=== PATIENT | male | born 1955 | race Caucasian/White ===

== ENCOUNTER 2016-07-15 20:49 | Emergency (ER) | payer MEDICARE, MEDICAID ==
[2016-07-15] MEDS ORDERED: DIPH/PERTUSS(ACELL)/TETANUS VAC/PF 0.5 ML SYR (>=10YO) IM ONE (22:01)
--- NOTE | 2016-07-15 22:04 | ER Document Report ---
ED General - General Chief Complaint: Laceration Stated Complaint: LACERATION TO LEFT INDEX FINGER Time Seen by Provider: 07/15/16 22:01 Notes: Patient is a 60-year-old male who presents after sustaining superficial lacerations over the dorsal surface of his bilateral index fingers. States he was using a saw when he lost control of it and struck both fingers. Notes a dull, constant throbbing pain to the affected areas. States only recently came to the emergency department as he was unable to achieve hemostasis from the left index finger laceration but has now since resolved after application of direct pressure. Nothing was noted to worsen his symptoms. Has not seen his primary care doctor regarding today's concerns. He denies any limited range of motion in the affected digits. His tetanus shot is not up-to-date. Denies any additional injuries. TRAVEL OUTSIDE OF THE [place] IN LAST 30 DAYS: No - Related Data Allergies/Adverse Reactions: No Known Allergies Allergy (Verified 07/15/16 21:30) Past Medical History - General Information source: Patient - Social History Smoking Status: Former Smoker Chew tobacco use (# tins/day): No Frequency of alcohol use: None Drug Abuse: None Lives with: Spouse/Significant other Family History: Reviewed & Not Pertinent Patient has suicidal ideation: No Patient has homicidal ideation: No - Past Medical History Cardiac Medical History: Reports: Hx Hypertension Renal/ Medical History: Denies: Hx Peritoneal Dialysis Musculoskeltal Medical History: Reports Hx Musculoskeletal Deformity, Reports Hx Musculoskeletal Trauma Surgical Hx: Negative - Immunizations Hx Diphtheria, Pertussis, Tetanus Vaccination: No Review of Systems - Review of Systems Notes: Constitutional: Negative for fever. Eyes: Negative for visual changes. ENT: Negative for facial injury Cardiovascular: Negative for chest injury. Respiratory: Negative for shortness of breath. Gastrointestinal: Negative for abdominal injury. Genitourinary: Negative for genital injury Musculoskeletal: Negative for back injury. Skin: Positive for laceration/abrasions. Neurological: Negative for head injury. Physical Exam - Vital signs Vitals: Pulse Resp BP Pulse Ox 57 L 20 148/73 H 97 07/15/16 22:48 07/15/16 22:48 07/15/16 22:48 07/15/16 22:48 Interpretation: Hypertensive, Bradycardic Notes: PHYSICAL EXAMINATION: GENERAL: Well-appearing, well-nourished and in no acute distress. HEAD: Atraumatic, normocephalic. EYES: sclera anicteric, conjunctiva are normal. ENT: Moist mucous membranes. NECK: Normal range of motion LUNGS: Normal work of breathing HEART: 2+ radial pulses bilaterally EXTREMITIES: no pitting or edema. No cyanosis. Full flexion and extension of the bilateral index fingers at the MCP, DIP and PIP against resistance. NEUROLOGICAL: No focal neurological deficits. Moves all extremities spontaneously and on command. PSYCH: Normal mood, normal affect. SKIN: Warm, Dry, normal turgor, there is a 1 cm laceration over the dorsal aspects of both index fingers bilaterally Course - Re-evaluation Re-evalutation: 07/15/16 22:02 Patient presents with superficial lacerations to both the left and right index fingers. The left index finger over the dorsal surface had complete avulsion of a portion of tissue overlying the PIP with no areas amenable to suture repair. The right index finger has a superficial 2 cm laceration that appears amenable to possible suture repair. However patient has agreed to proceed with Steri-Strips and dressing as opposed to suture repair. The wounds have been cleaned extensively. His tetanus will be updated. At this time will discharge with return precautions and follow-up recommendations. Verbal discharge instructions given a the bedside and opportunity for questions given. Medication warnings reviewed. Patient is in agreement with this plan and has verbalized understanding of return precautions and the need for primary care follow-up in the next 24-72 hours. - Vital Signs Vital signs: Temp Pulse Resp BP Pulse Ox 57 L 20 148/73 H 97 07/15/16 22:48 07/15/16 22:48 07/15/16 22:48 07/15/16 22:48 Discharge - Discharge Clinical Impression: Laceration of index finger Qualifiers: Encounter type: initial encounter Damage to nail status: without damage Foreign body presence: without foreign body Laterality: unspecified laterality Qualified Code(s): S61.218A - Laceration without foreign body of other finger without damage to nail, initial encounter Condition: Good Disposition: HOME, SELF-CARE Additional Instructions: Change the dressing twice daily and reapply the Steri-Strips that you were sent home with each dressing change. Return immediately if you develop spreading redness around the wound, pus from the wound, worsening pain, or a fever of > 100.4. Keep the area clean and dry. Wash gently with soap and water twice daily and cover with antibiotic ointment.
[2016-07-15 22:50] VITALS: BP 148/73
== END 2016-07-15 22:30 | disposition home or self-care (01) ==
LOC: ER 20:49
DX: S61.211A Laceration without foreign body of left index finger without damage to nail, initial encounter (principal); S61.210A Laceration without foreign body of right index finger without damage to nail, initial encounter; W29.8XXA Contact with other powered hand tools and household machinery, initial encounter; Z23 Encounter for immunization; Z87.891 Personal history of nicotine dependence; I10 Essential (primary) hypertension
CPT/HCPCS: 90471; 90715; 99282

== ENCOUNTER → 2016-08-30 | Outpatient (CLI) | payer MEDICARE, MEDICAID ==
--- NOTE | 2016-08-30 10:40 | RADIOLOGY REPORT (SQ) ---
EXAM DESCRIPTION: CT LUNG CANCER SCREENING COMPLETED DATE/TIME: 08/30/2016 10:21 am REASON FOR STUDY: ENCOUNTER FOR SCREENING LUNG CA Z12.2 ENCNTR SCREEN FOR MALIGNANT NEOPLASM OF RES PIRATORY OR Has the patient had a Chest CT scan within the past year? No. Was the patient offered tobacco cessation counseling? Yes. Was the patient engaged in shared decision making for this test? Yes. Does the patient have signs or symptoms of Lung Cancer? No. Is the patient a smoker? No. How many packs per year? 365. How many years since quitting smoking? 1 year. Patients age: 61. COMPARISON: None. TECHNIQUE: Low Dose CT scan performed of the chest without intravenous contrast for purposes of scre ening for lung cancer. Images reviewed with lung, soft tissue and bone windows. Reconstructed coron al and sagittal MPR images reviewed. All images stored on PACS. All CT scanners at this facility use dose modulation, iterative reconstruction, and/or weight based d osing when appropriate to reduce radiation dose to as low as reasonably achievable (ALARA). [facility]: Dose Right [facility]: CareDose [facility]: Dose Right [facility]: Teradose 4D [facility]: InternetArray RADIATION DOSE: Up-to-date CT equipment and radiation dose reduction techniques were employed. CTDIv ol: 2.1 mGy. DLP: 84 mGy-cm. mGy. . LIMITATIONS: None FINDINGS: LUNGS AND PLEURA: No masses or nodules. No pleural effusions or calcifications. No pne umothorax. No scarring or interstitial changes. HILAR AND MEDIASTINAL STRUCTURES: No identified masses. No abnormal nodes. HEART AND VASCULAR STRUCTURES: No aortic aneurysm. No pericardial effusion. No cardiac devices. CORONARY ARTERY CALCIFICATIONS: Mild to moderate calcifications. UPPER ABDOMEN, THYROID, BONES, OTHER SOFT TISSUES: No significant findings. IMPRESSION: NO SIGNIFICANT FINDING IN THE LUNGS ON NON-CONTRASTED CHEST CT. NO OTHER CLINICALLY SIGNIFICANT/POTENTIALLY CLINICALLY SIGNIFICANT FINDINGS LUNGRADS: LUNGRADS: 1 NEGATIVE. NO NODULES, OR DEFINITELY BENIGN NODULES MODIFIER: NONE RECOMMENDATION: Continue annual screening with LDCT in 12 months. COMMENT: CRITERIA: No lung nodules. Nodules with specific calcifications: Complete, central, popcorn, concentric rings and fat containin g nodules. TECHNICAL DOCUMENTATION: JOB ID: [id number] Quality ID # [id number]: Final reports with documentation of one or more dose reduction techniques (e.g., Au tomated exposure control, adjustment of the mA and/or kV according to patient size, use of iterative reconstruction technique) 2010 [employer]
== END ==
LOC: RAD 10:02
PROVIDERS: ATTEND Family Medicine
DX: Z12.2 Encounter for screening for malignant neoplasm of respiratory organs (principal); Z87.891 Personal history of nicotine dependence
CPT/HCPCS: G0297

== ENCOUNTER 2017-02-27 21:30 | Emergency (ER) | payer MEDICARE, MEDICAID ==
[2017-02-27] MEDS ORDERED: IPRATROPIUM/ALBUTEROL 0.5-2.5 MG/3 ML AMPUL NEB ONE ×2 (22:28)
[2017-02-27] MEDS ORDERED: PREDNISONE 20 MG TABLET PO ONE (22:28)
--- NOTE | 2017-02-27 22:30 | ER Document Report ---
ED General - General Chief Complaint: Blood Pressure Problem Stated Complaint: HIGH BLOOD PRESSURE Time Seen by Provider: 02/27/17 22:28 Notes: Patient is a 61-year-old male comes emergency department for 2 complaints. First complaint is he wants his blood pressure checked because he thinks it is running high, he detected at home and it was elevated. He denies headache, chest pain, focal numbness or weakness, visual changes. He is medicated with lisinopril and is compliant with this. Second complaint is 2 weeks of cough with whitish sputum production, wheezing, shortness of breath. He denies fevers. He is a former smoker, never diagnosed with COPD. TRAVEL OUTSIDE OF THE [place] IN LAST 30 DAYS: No - Related Data Allergies/Adverse Reactions: No Known Allergies Allergy (Verified 07/15/16 21:30) Past Medical History - General Information source: Patient - Social History Smoking Status: Former Smoker Frequency of alcohol use: None Drug Abuse: None Lives with: Alone Family History: Reviewed & Not Pertinent Patient has suicidal ideation: No Patient has homicidal ideation: No - Past Medical History Cardiac Medical History: Reports: Hx Hypertension Pulmonary Medical History: Reports: Hx COPD Renal/ Medical History: Denies: Hx Peritoneal Dialysis Musculoskeltal Medical History: Reports Hx Musculoskeletal Deformity, Reports Hx Musculoskeletal Trauma Surgical Hx: Negative - Immunizations Hx Diphtheria, Pertussis, Tetanus Vaccination: No Review of Systems - Review of Systems Constitutional: No symptoms reported EENT: No symptoms reported Cardiovascular: See HPI Respiratory: See HPI Gastrointestinal: No symptoms reported Genitourinary: No symptoms reported Male Genitourinary: No symptoms reported Musculoskeletal: No symptoms reported Skin: No symptoms reported Hematologic/Lymphatic: No symptoms reported Neurological/Psychological: No symptoms reported Physical Exam - Vital signs Interpretation: Normal - General General appearance: Appears well, Alert In distress: None - HEENT Head: Normocephalic, Atraumatic Eyes: Normal Pupils: PERRL - Respiratory Respiratory status: No respiratory distress, Tachypnea - Very slight tachypnea. No: Respiratory distress, Labored Chest status: Nontender Breath sounds: Decreased air movement, Wheezing - Loud expiratory wheezes throughout Chest palpation: Normal - Cardiovascular Rhythm: Regular. No: Tachycardia Heart sounds: Normal auscultation, S1 appreciated, S2 appreciated Murmur: No - Abdominal Inspection: Normal Distension: No distension Bowel sounds: Normal Tenderness: Nontender. No: Tender, Guarding Organomegaly: No organomegaly - Back Back: Normal, Nontender. No: Tender - Extremities General upper extremity: Normal inspection, Nontender, Normal color, Normal ROM , Normal temperature General lower extremity: Normal inspection, Nontender, Normal color, Normal ROM , Normal temperature, Normal weight bearing. No: Sara's sign - Neurological Neuro grossly intact: Yes Cognition: Normal Orientation: AAOx4 Denys Coma Scale Eye Opening: Spontaneous Denys Coma Scale Verbal: Oriented A[place]ell Coma Scale Motor: Obeys Commands Denys Coma Scale Total: 15 Speech: Normal Motor strength normal: LUE, RUE, LLE, RLE Sensory: Normal - Psychological Associated symptoms: Normal affect, Normal mood - Skin Skin Temperature: Warm Skin Moisture: Dry Skin Color: Normal Course - Re-evaluation Re-evalutation: Patient with diffuse expiratory wheezes on initial examination, these resolved with 2 DuoNeb treatments, given prednisone. Chest x-ray shows evidence of COPD but no other abnormality. Patient is not hypoxic, he ambulates without any difficulty. Blood pressure 160 systolic on initial evaluation, no headache, no chest pain, he is taking his lisinopril. Patient with cough, likely COPD exacerbation, no hypotension. Patient will follow up routinely with his primary care to have this rechecked and managed. Discussed treatments for COPD exacerbation, discussed follow-up and return precautions, patient states gratefulness for care. Stable at time of discharge. Discharge - Discharge Clinical Impression: Wheezing, Cough, Shortness of breath, Essential hypertension Condition: Stable Disposition: HOME, SELF-CARE Additional Instructions: Your chest x-ray is consistent with some obstructive changes suggesting COPD. Take the prednisone as prescribed, use albuterol inhaler every 4-6 hours as needed for wheezing or shortness of breath. Follow-up with your primary care provider for management of COPD and monitoring of your blood pressure. Return for any concerning symptoms including difficulty breathing, fever of 100.4 greater, chest pain, or any other concerning symptoms. Prescriptions: Albuterol Sulfate [Proair HFA Inhalation Aerosol 8.5 gm MDI] 2 puff IH Q4H PRN # 1 mdi PRN Reason: Prednisone 60 mg PO DAILY #12 tablet
--- NOTE | 2017-02-27 22:47 | RADIOLOGY REPORT (SQ) ---
EXAM DESCRIPTION: CHEST PA/LAT COMPLETED DATE/TIME: 02/27/2017 10:35 pm REASON FOR STUDY: productive cough, shortness of breath COMPARISON: CT chest 08/30/2016 EXAM PARAMETERS: NUMBER OF VIEWS: two views TECHNIQUE: Digital Frontal and Lateral radiographic views of the chest acquired. RADIATION DOSE: NA LIMITATIONS: none FINDINGS: LUNGS AND PLEURA: Mild hyperinflation with flattening of the hemidiaphragms. Nipple shado ws bilaterally. No acute infiltrates. No pleural effusion. No worrisome pulmonary nodules. MEDIASTINUM AND HILAR STRUCTURES: No masses or contour abnormalities. HEART AND VASCULAR STRUCTURES: Heart normal size. No evidence for failure. BONES: No acute findings. HARDWARE: None in the chest. OTHER: No other significant finding. IMPRESSION: No acute changes. Obstructive lung disease TECHNICAL DOCUMENTATION: JOB ID: [id number] [employer]- All Rights Reserved
== END 2017-02-27 23:10 | disposition home or self-care (01) ==
LOC: ER 21:30
DX: I10 Essential (primary) hypertension (principal); R05 Cough; R06.2 Wheezing; R06.02 Shortness of breath; Z79.899 Other long term (current) drug therapy; Z87.891 Personal history of nicotine dependence
CPT/HCPCS: 94640 ×2; 99283; 71046; A9270 ×2; J7512; J7620

== ENCOUNTER 2017-03-06 21:47 | Emergency (ER) | payer MEDICARE, MEDICAID ==
[2017-03-06] MEDS ORDERED: SULFAMETHOXAZOLE/TRIMETHOPRIM 800-160 MG TABLET PO ONE (22:20)
[2017-03-06] MEDS ORDERED: DIPH/PERTUSS(ACELL)/TETANUS VAC/PF 0.5 ML SYR (>=10YO) IM ONE (22:20)
--- NOTE | 2017-03-06 22:24 | ER Document Report ---
HPI - HPI Patient complains to provider of: abscess Onset: Other - 1 1/2 week ago Onset/Duration: Persistent Quality of pain: Achy Severity: Moderate Pain Level: 3 Context: Patient presents to emergency department with a sore on his right forearm. He reports that about a week and half ago he scraped his arm on a piece of metal. He cleaned the area. He reports he covered it with Band-Aid. He reports the area became swollen and when he removed the Band-Aid today it popped and a lot of discharge came out of it. He now has the area is red with a red streak going up his arm. Denies fever vomiting diarrhea. Denies pain. He is not sure when his last tetanus was. Clear drainage noted. Associated Symptoms: None Exacerbated by: Denies Relieved by: Denies Similar symptoms previously: No Recently seen / treated by doctor: No - CONSTITUTIONAL Constitutional: DENIES: Fever, Chills - EENT EENT: DENIES: Sore Throat, Ear Pain, Eye problems - NEURO Neurology: DENIES: Headache, Weakness, Vision blurred, Dizzinesss / Vertigo - CARDIOVASCULAR Cardiovascular: DENIES: Chest pain - RESPIRATORY Respiratory: DENIES: Trouble Breathing, Coughing - GASTROINTESTINAL Gastrointestinal: DENIES: Abdominal Pain, Black / Bloody Stools - URINARY Urinary: DENIES: Dysuria, Urgency, Frequency - MUSCULOSKELETAL Musculoskeletal: REPORTS: Extremity pain - R forearm Past Medical History - General Information source: Patient - Social History Smoking Status: Former Smoker - quit 2 years ago Cigarette use (# per day): No Frequency of alcohol use: None Drug Abuse: None Occupation: retired Family History: Reviewed & Not Pertinent Patient has suicidal ideation: No Patient has homicidal ideation: No - Past Medical History Cardiac Medical History: Reports: Hx Hypertension Pulmonary Medical History: Reports: Hx COPD Renal/ Medical History: Denies: Hx Peritoneal Dialysis Musculoskeltal Medical History: Reports Hx Musculoskeletal Deformity, Reports Hx Musculoskeletal Trauma Surgical Hx: Negative - Immunizations Hx Diphtheria, Pertussis, Tetanus Vaccination: No Vertical Provider Document - CONSTITUTIONAL Agree With Documented VS: Yes Exam Limitations: No Limitations General Appearance: WD/WN, No Apparent Distress - INFECTION CONTROL TRAVEL OUTSIDE OF THE [place] IN LAST 30 DAYS: No - HEENT HEENT: Atraumatic, Normocephalic. negative: Conjuctival Injection - NECK Neck: Normal Inspection, Supple. negative: Lymphadenopathy-Left, Lymphadenopathy-Right - RESPIRATORY Respiratory: Breath Sounds Normal, No Respiratory Distress. negative: Rhonchi, Wheezing - CARDIOVASCULAR Cardiovascular: Regular Rate, Regular Rhythm - GI/ABDOMEN Gastrointestinal: Abdomen Soft - MUSCULOSKELETAL/EXTREMETIES Musculoskeletal/Extremeties: MAEW, FROM, Non-Tender - NEURO Level of Consciousness: Awake, Alert, Appropriate Motor/Sensory: No Motor Deficit - DERM Integumentary: Warm, Dry, Abscess - right forearm, no swelling, clear drainage noted, culture obtained, erythema around site with a small streak going up arm, no warmth Adult Front & Back Diagram: 1 - drainage 2 - small streak going up arm Course - Re-evaluation Re-evalutation: 03/06/17 22:33 Patient instructed on Septra, instructed on signs and symptoms of allergic reaction. Patient also instructed on tetanus. Instructed to follow-up with his primary care provider Dr. Norm Frank. He verbalized understanding to all instructions. Discharge - Discharge Clinical Impression: Abscess of right forearm Condition: Stable Disposition: HOME, SELF-CARE Instructions: Abscess ([facility]), Tetanus Immunization Given ([facility]), Trimethoprim- Sulfa ([facility]) Additional Instructions: *You have been treated for a abscess *Take medication as prescribed *Monitor the site for signs of increasing infection such as increasing pain, redness, swelling, warmth * keep the site clean *Follow up with a primary care provider within 5 days *Return to ED for signs of increasing infection, worsening condition, changes, needs Prescriptions: Sulfamethoxazole/Trimethoprim [Bactrim Ds Tablet] 1 each PO BID #20 tablet
[2017-03-06 23:05] VITALS: BP 135/85
== END 2017-03-06 23:03 | disposition home or self-care (01) ==
LOC: ER 21:47
DX: L02.413 Cutaneous abscess of right upper limb (principal); I10 Essential (primary) hypertension; J44.9 Chronic obstructive pulmonary disease, unspecified; Z87.891 Personal history of nicotine dependence; Z23 Encounter for immunization
CPT/HCPCS: 99282; 87070; 87205; 90715; A9270